=== PATIENT | male | born 1995 | race Caucasian/White ===

== ENCOUNTER → 2023-01-21 12:48 | Outpatient (CLI) | payer BC, SELFPAY ==
--- NOTE | ~2023-01-21 | US_ITS ---
Testicular ultrasound with doppler. Indication: Left testicular mass. Technique: Real-time sonography the scrotum was performed. Color flow Doppler and Doppler spectral an alysis were performed. Findings: The testes are homogeneous in echotexture bilaterally. There is no evidence of an intrates ticular mass. The right testis measures 3.9 x 2.4 x 3.5 cm and the left 4.1 x 2.1 x 3.2 cm. There is color-flow seen to both testes. Arterial and venous spectral waveforms are seen in both testes. There is no sonographic evidence of torsion. The head of the epididymis is visualized bilaterally and is within normal limits. At the area of concern in the left scrotal region, there is a 4 mm thin-walled cystic structure, cons istent with cystic appendix epididymis. Impression: 4 mm thin-walled cystic structure is consistent with left cystic appendix epididymis. No testicular mass or torsion. Reviewed, dictated and finalized at [facility]. Impression: 4 mm thin-walled cystic structure is consistent with left cystic appendix epidi dymis. No testicular mass or torsion.
== END ==
PROVIDERS: PCP Internal Medicine; Visit Provider Physician Assistant
DX: N50.89 Other specified disorders of the male genital organs (principal)
CPT/HCPCS: 76870; 93976

== ENCOUNTER 2023-03-23 16:22 | Emergency (ER) | payer BC, SELFPAY ==
[2023-03-23] VITALS (9 sets, daily range): BP systolic 127–177; BP diastolic 80–93; PULSE 70–99; RESP 16–21; TEMP 37.1; O2SAT 96–100
--- NOTE | ~2023-03-23 | XR_ITS ---
EXAMINATION: XR chest 1V portable Exam Date/Time: 03/23/2023 16:52 CDT HISTORY: cp WITH NUMBNESS IN UPPER EXTREMITIES Comparison: None. RESULT: Lines, tubes, and devices: None. Lungs and pleura: Clear. Cardiomediastinal silhouette: Normal. Other: No acute osseous or upper abdominal finding. IMPRESSION: No acute cardiopulmonary process. Reviewed, dictated and finalized at location [facility].
--- NOTE | 2023-03-23 16:32 | ECG_ITS ---
Measurements Intervals [place] Rate: 96 P: 48 CT: 192 QRS: -23 QRSD: 95 T: 32 QT: 341 QTc: 432 Interpretive Statements SINUS RHYTHM POSSIBLE LEFT ATRIAL ENLARGEMENT INCOMPLETE RIGHT BUNDLE BRANCH BLOCK DELAYED PRECORDIAL R/S TRANSITION BORDERLINE T WAVE ABNORMALITY- ANTEROLATERAL LEADS BORDERLINE ECG NO PREVIOUS ECG AVAILABLE FOR COMPARISON Electronically Signed On 03-26-2023 8:11:10 CDT by Yovani Lundberg D.O.
--- NOTE | 2023-03-23 16:34 | ED.CHESTPAIN ---
HPI - Chest Pain General Chief Complaint: Chest Pain Stated Complaint: chest pain Time Seen by Provider: 03/23/23 16:31 Source: patient and family Mode of arrival: ambulatory Limitations: no limitations History of Present Illness HPI narrative: 27 years old white male presented to the ED with feeling fainting, lightheadedness, numbness of hands, arms and feet, slight chest discomfort at the top of the chest midline, started with around 2 hours prior to arrival. Patient had similar symptoms last evening lasted for few minutes. Patient works out daily, intense cardiac working out, 7 days a week. Patient denies any aggravating or relieving factors. Patient is healthy otherwise, smokes occasionally, drinks over the weekend, denies drug use. Related Data Allergies Allergy/AdvReac Type Severity Reaction Status Date / Time No Known Allergies Allergy Verified 03/23/23 16:23 Review of Systems Review of Systems: All systems reviewed & are unremarkable except as noted in HPI and below Exam Narrative: General appearance: Well-developed, well-nourished Skin: Normal color Head: Normocephalic, nontraumatic Eyes: Clear conjunctiva ENT: Oropharynx normal, ears normal, nose normal Neck: Supple, nontender Chest and respiratory: Airway patent, no respiratory distress, no accessory muscle use Heart: Regular rate/rhythm Abdomen: Soft, nontender, no organomegaly, quiet bowel sounds Vascular: Normal peripheral pulses, normal capillary refill. Musculoskeletal: Normal range of motion, nontender back Neurologic: Alert and oriented ?3, [employer] is normal as tested, no gross motor deficit Course Vital Signs Vital signs: Vital Signs Temperature 37.1 C 03/23/23 16:28 Pulse Rate 98 03/23/23 16:28 Respiratory Rate 18 03/23/23 16:28 Blood Pressure 177/93 H 03/23/23 16:28 Pulse Oximetry 100 03/23/23 16:28 Oxygen Delivery Room Air 03/23/23 16:28 Temperature 37.1 C 03/23/23 16:28 Pulse Rate 98 03/23/23 16:28 Respiratory Rate 18 03/23/23 16:28 Blood Pressure 177/93 H 03/23/23 16:28 Pulse Oximetry 100 03/23/23 16:28 Oxygen Delivery Room Air 03/23/23 16:28 MDM - Chest Pain MDM Narrative Medical decision making narrative: 27 years old white female came with anxiety-like symptoms, patient has intense cardiac workout daily, 7 days a week, 12 concerned about patient cardiac related chest pain. Physical examination was significant, work-up today including blood, chest x-ray and the EKG showed no abnormality to explain patient condition. Anxiety-like symptoms is my concern. The pt was discharged to home.the pt,s condition upon discharge was fair,education was provided to the pt in reference to the final impression,discharge study results,treatment,prognosis and need for follow up . Differential Diagnosis Differential diagnosis: Likely pneumothorax, atypical chest pain and other (Anxiety-like symptoms) Imaging Data Radiologist's impression: Impressions Chest X-Ray 03/23/23 17:11 IMPRESSION: No acute cardiopulmonary process. ECG Data EKG #1: ECG completion date: 03/23/23 ECG completion time: 17:47 Interpretation: Normal sinus rhythm at 96 bpm, nonspecific T wave abnormality, abnormal EKG, no old EKG for comparison Discharge Plan Discharge Clinical Impression: Anxiety-like symptoms, Atypical chest pain Patient Disposition: Home, Self-Care Condition: Improved Instructions: Antibiotic Form Additional Instructions: Return if symptoms are worsening , call your family physician for appointment, take Tylenol as as needed for aches and pain, continue home medications. Fernando
[2023-03-23 16:58] LABS: Basophils Absolute Auto 0.1 K/mm3 (0.0-0.1); Basophils Percent Auto 1.5 % (0.2-1.2); Eosinophils Absolute Auto 0.2 K/mm3 (0-0.3); Eosinophils Percent Auto 2.8 % (0-4.4); Hematocrit 43.3 % (42.0-52.0); Hemoglobin 15.3 g/dL (14.0-18.0); Immature Granulocyte Absolute 0.02 K/mm3 (0.00-0.031); Immature Granulocyte Percent A 0.2 % (0-0.5); Lymphocytes Absolute Auto 1.89 K/mm3 (0.9-3.2); Lymphocytes Percent Auto 22.1 % (18.3-44.2); Mean Corpuscular HGB Conc 35.3 g/dl (32-36); Mean Corpuscular Hemoglobin 32.5 pg (26-34); Mean Corpuscular Volume 91.9 fl (80-100); Mean Platelet Volume 8.5 fl (7.4-10.4); Monocytes Absolute Auto 0.6 K/mm3 (0.1-0.6); Monocytes Percent Auto 7.5 % (2.6-8.5); Neutrophils Absolute Auto 5.6 K/mm3 (1.3-6.7); Neutrophils Percent Auto 65.9 % (45.5-73.1); Platelet Count Result 270 k/mm3 (150-375); Red Blood Count 4.71 M/mm3 (4.6-6.20); Red Cell Distribution Width 12.3 % (11.5-14.5); White Blood Count 8.6 K/mm3 (4.5-10.0)
[2023-03-23] MEDS: LORazepam (*CRX) 0.5 MG TABLET 1 MG PO (16:58)
[2023-03-23 17:10] LABS: Alanine Aminotransferase 30 U/L (6-50); Albumin Level 4.8 g/dL (3.5-5.1); Alkaline Phosphatase 45 U/L (38-126); Anion Gap 8 mmol/L (8-16); Aspartate Amino Transferase 33 U/L (17-59); Bilirubin,Total 0.5 mg/dL (0.2-1.3); Blood Urea Nitrogen 16 mg/dL (9-20); Carbon Dioxide 26 mmol/L (22-30); Chloride 106 mmol/L (98-107); Estimated CRCL calculation 112 ml/min; Estimated Glomerular Filt Rate > 60; Glucose 101 mg/dL (65-110); Potassium 3.4 mmol/L (3.4-5.0); Sodium 140 mmol/L (137-145)
[2023-03-23 17:20] LABS: Troponin I < 0.012 ng/mL (0.000-0.034)
== END 2023-03-23 17:36 | disposition home or self-care (01) ==
PROVIDERS: Emergency Provider Emergency Medicine; PCP Internal Medicine
DX: R42 Dizziness and giddiness (principal); R20.0 Anesthesia of skin; R07.89 Other chest pain; R94.31 Abnormal electrocardiogram [ECG] [EKG]; I45.10 Unspecified right bundle-branch block
CPT/HCPCS: 36415; 71045; 80053; 84484; 85025; 93005; 99284; A9270